=== PATIENT | male | born 1950 | race Caucasian/White ===

== ENCOUNTER 2017-01-06 09:00 | Inpatient (IN) ==
[2017-01-03 15:04] LABS: Basophils # (Auto) 0.1 K/mcL (0.0-0.3); Basophils % (Auto) 0.8 % (0.0-2.0); Eosinophils # (Auto) 0.2 K/mcL (0.0-0.7); Eosinophils % (Auto) 2.7 % (0.0-7.0); Granulocytes % (Auto) 63.5 % (38.0-78.0); Lymphocytes # (Auto) 1.7 K/mcL (1.5-4.8); Lymphocytes % (Auto) 25.3 % (15.5-49.0); Mean Cell Volume 84.5 fL (80.0-100.0); Mean Corpuscular HGB Conc 33.2 g/dL (31.0-36.0); Monocytes # (Auto) 0.5 K/mcL (0.1-0.9); Monocytes % (Auto) 7.7 % (1.0-12.0); Platelet Count 260 K/mcL (140-440); Red Cell Distribution Width 14.7 % (11.5-14.5)
[2017-01-03 15:32] LABS: Blood Urea Nitrogen 28 mg/dl (8-23)
[2017-01-03 16:17] LABS: Appearance,Urine CLOUDY; Bacteria,Urine 0 /hpf (0); Bilirubin,Urine NEG (NEG); Color,Urine YELLOW; Glucose,Urine (UA) NEGATIVE (NEG); Leukocyte Esterase,Urine 500 /uL (NEG); Mucus,Urine FEW /hpf (0); Nitrate,Urine NEG (NEG); Protein,Urine NEG (NEG); Specific Gravity,Urine 1.015 (1.000-1.035); Urine Blood 0.03 mg/dL (<0.03); Urine Budding Yeast FEW /hpf (0); Urine RBC 12 /hpf (0-1); Urine Squamous Epithelial Cell 2 /hpf (0-4); Urine WBC 48 /hpf (0-4); Urobilinogen,Urine NEG (NEG)
[~2017-01-06 09:00] MED LIST: ACETAMINOPHEN 500 MG TABLET PO SCH; CELECOXIB 200 MG CAPSULE PO SCH; PREGABALIN 75 MG CAPSULE PO SCH; ceFAZolin 1 GM VIAL IV SCH; oxyCODONE 10 MG TAB.ER.12H PO SCH
[2017-01-06 12:09] LABS: Appearance,Urine HAZY; Bacteria,Urine 0 /hpf (0); Bilirubin,Urine NEG (NEG); Color,Urine YELLOW; Glucose,Urine (UA) NEGATIVE (NEG); Leukocyte Esterase,Urine 500 /uL (NEG); Mucus,Urine FEW /hpf (0); Nitrate,Urine NEG (NEG); Protein,Urine 30 mg/dL (NEG); Specific Gravity,Urine 1.019 (1.000-1.035); Urine Blood NEG mg/dL (<0.03); Urine RBC 23 /hpf (0-1); Urine Squamous Epithelial Cell 7 /hpf (0-4); Urine WBC > 182 /hpf (0-4); Urobilinogen,Urine NEG (NEG)
[2017-01-06] MEDS ORDERED: SODIUM CHLORIDE 0.9% IV ONE (12:30)
[2017-01-06] MEDS ORDERED: GENTAMICIN SULFATE IV ONE (12:30)
[2017-01-06] MEDS ORDERED: WARFARIN 3 MG TABLET PO SCH (14:00)
[2017-01-06] MEDS ORDERED: WARFARIN 4 MG TABLET PO SCH ×2 (14:00)
[2017-01-06] MEDS ORDERED: fentaNYL 250 MCG/5 ML VIAL IV ONE (14:05)
[2017-01-06] MEDS ORDERED: KETAMINE 100 MG/ML ML IV ONE (14:05)
[2017-01-06] MEDS ORDERED: PHENYLEPHRINE 10 MG/ML VIAL IV ONE (14:05)
[2017-01-06] MEDS ORDERED: SUCCINYLCHOLINE 20 MG/ML ML IV ONE (14:05)
[2017-01-06] MEDS ORDERED: NALBUPHINE 10 MG/ML AMPUL IV ONE (14:05)
[2017-01-06] MEDS ORDERED: ONDANSETRON 4 MG/2 ML VIAL IV ONE (14:05)
[2017-01-06] MEDS ORDERED: PROPOFOL 200 MG/20 ML VIAL IV ONE (14:05)
[2017-01-06] MEDS ORDERED: ROCURONIUM 10 MG/ML ML IV ONE (14:05)
[2017-01-06] MEDS ORDERED: HYDROmorphone 2 MG/ML SYRINGE IV ONE (14:05)
[2017-01-06] MEDS ORDERED: LIDOCAINE HCL/PF 100 MG/5 ML SYRINGE IV ONE (14:05)
[2017-01-06] MEDS ORDERED: GLYCOPYRROLATE 0.2 MG/ML VIAL IV ONE (14:05)
[2017-01-06] MEDS ORDERED: ePHEDrine 50 MG/ML AMPUL IV ONE (14:05)
[2017-01-06] MEDS ORDERED: MIDAZOLAM 5 MG/5 ML VIAL IV ONE (14:05)
[2017-01-06] MEDS ORDERED: DEXAMETHASONE 10 MG/ML VIAL IV ONE (14:05)
[2017-01-06] MEDS ORDERED: GENTAMICIN SULFATE 800 MG/20 ML VIAL IR ONE (15:11)
[2017-01-06] MEDS ORDERED: BENZOCAINE/MENTHOL 1 LOZENGE PO PRN (15:18)
[2017-01-06] MEDS ORDERED: FLEETS ADULT ENEMA PR PRN (15:18)
[2017-01-06] MEDS ORDERED: MAGNESIUM HYDROXIDE 30 ML ORAL.SUSP PO PRN (15:18)
[2017-01-06] MEDS ORDERED: BISACODYL 10 MG SUPP.RECT PR PRN (15:18)
[2017-01-06] MEDS ORDERED: TRANEXAMIC ACID 1,000 MG/10 ML VIAL IV ONE (15:18)
[2017-01-06] MEDS ORDERED: ACETAMINOPHEN 325 MG TABLET PO PRN (15:18)
[2017-01-06] MEDS ORDERED: TEMAZEPAM 15 MG CAPSULE PO PRN (15:18)
[2017-01-06] MEDS ORDERED: ONDANSETRON 4 MG/2 ML VIAL IV PRN (15:18)
[2017-01-06] MEDS ORDERED: POLYETHYLENE GLYCOL 3350 17 GM PACKET PO PRN (15:18)
[2017-01-06] MEDS ORDERED: HYDROmorphone 2 MG/ML SYRINGE IV PRN (15:18)
[2017-01-06] MEDS ORDERED: IPRATROPIUM/ALBUTEROL SULFATE 1 PUFF INHALER INH PRN (15:20)
[2017-01-06] MEDS ORDERED: NITROGLYCERIN 0.4 MG TAB.SUBL SL PRN (15:20)
[2017-01-06] MEDS ORDERED: HYDROCORTISONE PR PRN (15:20)
--- NOTE | 2017-01-06 15:26 | Brief Operative Note ---
Date of procedure: 01/06/17 Pre-op diagnosis: Right shoulder djd and rca and bicep tendonopathy Post-op diagnosis: same Procedure: Right shoulder revers tsa and bicep tenodesis Grafts/Implants: Yes Anesthesia: GETA Complications: none Surgeon: Ángel Barbour Esthetician/Skin Therapist: Regino Heaton Estimated blood loss (cc): 20 Specimens Removed/Pathology: none sent Condition: stable Disposition: PACU
--- NOTE | 2017-01-06 15:54 | Operative Note ---
DATE OF OPERATION: 01/06/2017 PREOPERATIVE DIAGNOSIS: Right shoulder rotator cuff arthropathy with severe arthritis and biceps tendinopathy. POSTOPERATIVE DIAGNOSIS: Right shoulder rotator cuff arthropathy with severe arthritis and biceps tendinopathy. PROCEDURE: Right reverse total shoulder using Viburnum components, as well as biceps tenodesis. SURGEON: Ángel Barbour MD. PEWTER FABRICATOR: Regino Heaton PA-C. ANESTHESIA: General LMA anesthesia. COMPLICATIONS: None. DESCRIPTION OF PROCEDURE: The patient was brought to the operating room and put to sleep with general LMA anesthesia. Once asleep, the patient had the right shoulder sterilely prepped and draped in the usual sterile fashion. The shoulder was confirmed as the operative site with initials, timeout, and x-rays. Once confirmed, we proceeded with sterilely prepping the shoulder, placing Ioban over the skin and stockinette over the hand. The patient was sat in a very comfortable beach chair position in a Trendelenburg position to keep the knees about the height of his chest. Once done, we then made a deltopectoral approach to the shoulder and identified the cephalic vein. This was retracted. We had exposure of the joint and released the subscap musculature. Part of the supraspinatus was torn. We did release the remnants of the biceps tendon and then repaired this in the subpectoral region with two [id number] stitches and roughened the bone. Once the biceps was repaired we retracted the subscap medially and then dislocated the humeral head. The severe arthritis of the humeral head was identified. Retractors were placed, and we made our neck cut at 135 degrees with the guide at the surgical neck region. Once removed, we then preserved the posterior cuff that was intact, removed the bony fragment and placed a metal cap on the humerus. This was then subluxed posteriorly using a retractor. A 360 degree capsulotomy was performed palpating the axillary nerve to preserved it so it was not injured as it was identified throughout the case. We removed the remnants of the intra-articular portion of the biceps tendon. A central pin was placed into the glenoid and reamed up to the size 40. Once this was done, bony fragments inferiorly were removed. We then placed metaglene with a central screw measuring 40 mm and then three additional screws; one measuring 20, one measuring 24, and one measuring 32 with excellent purchase. A glenosphere was placed. This was 6 mm offset and 2 mm of eccentricity placed at the inferior anterior location. This was tapped into place and locked into place. We irrigated thoroughly and then prepared the humerus. This was broached up to the size of 13. A 13 stem was then implanted after trialing with a standard thickness 4 poly. This seemed to fit very nicely. We repaired the subscap with #2 Ethibond, irrigated thoroughly and closed the deltoid with #2 Vicryl. The skin was closed with 2-0 Vicryl and adhesive closure. The patient tolerated this well without complication. A DonJoy sling was fitted and given to the patient. RBH:trudy Job ID: [id number] Doc ID: [id number] Ángel Barbour MD
[2017-01-06] MEDS ORDERED: METHOCARBAMOL 1,000 MG/10 ML VIAL IV ONE (15:59)
[2017-01-06] MEDS: HYDROmorphone 2 MG/ML SYRINGE IV PRN ×2 (16:00→16:15)
--- NOTE | 2017-01-06 16:07 | XRay Report ---
HISTORY: Reason for Exam:Post-OP Total Shoulder FINDINGS: There is a well-positioned reverse total shoulder arthroplasty. No fracture is present and there are no abnormal soft tissue calcifications around the joint. There is mild arthritis at the acromioclavicular joint. IMPRESSION: Well-positioned right shoulder prosthesis Interpreted and Authenticated by: Joe Ambrocio 01/06/17
[2017-01-06] MEDS: KETOROLAC 15 MG/ML VIAL IV PRN (16:39)
[2017-01-06] MEDS: HYDROcodone/APAP 10/325MG TABLET PO PRN ×2 (17:24→21:11)
[2017-01-06] MEDS: INSULIN LISPRO 1 UNIT/0.01 ML UNIT SQ SCH (17:58)
[2017-01-06] MEDS: 0.45 % SODIUM CHLORIDE 1,000 ML IV SCH (18:15)
[2017-01-06] MEDS: SULFAMETHOXAZOLE/TRIMETHOPRIM 1 TABLET PO SCH (20:51)
[2017-01-06] MEDS: DOCUSATE SODIUM 100 MG CAPSULE PO SCH (20:51)
[2017-01-06] MEDS ORDERED: INSULIN GLARGINE, HUMAN 1 UNIT/0.01 ML SQ SCH (21:00)
[2017-01-06] MEDS ORDERED: ATORVASTATIN 20 MG TABLET PO SCH (21:00)
[2017-01-06] MEDS ORDERED: SENNOSIDES 1 TABLET PO SCH (21:00)
[2017-01-06] MEDS: ceFAZolin 1 GM VIAL IV SCH (21:11)
[2017-01-06] MEDS: 0.9 % SODIUM CHLORIDE 10 ML SYRINGE IV SCH (21:12)
[2017-01-07] MEDS: 0.45 % SODIUM CHLORIDE 1,000 ML IV SCH (01:40)
[2017-01-07] MEDS: HYDROcodone/APAP 10/325MG TABLET PO PRN ×4 (01:50→11:40)
[2017-01-07] MEDS: ceFAZolin 1 GM VIAL IV SCH (06:03)
[2017-01-07] MEDS: 0.9 % SODIUM CHLORIDE 10 ML SYRINGE IV SCH (06:04)
[2017-01-07] MEDS: INSULIN LISPRO 1 UNIT/0.01 ML UNIT SQ SCH ×2 (07:20→12:00)
[2017-01-07] MEDS ORDERED: PANTOPRAZOLE 40 MG TABLET PO SCH (07:30)
[2017-01-07] MEDS: DOCUSATE SODIUM 100 MG CAPSULE PO SCH (08:27)
[2017-01-07] MEDS: SULFAMETHOXAZOLE/TRIMETHOPRIM 1 TABLET PO SCH (08:28)
[2017-01-07] MEDS: KETOROLAC 15 MG/ML VIAL IV PRN (08:30)
[2017-01-07] MEDS ORDERED: OLMESARTAN MEDOXOMIL 20 MG TABLET PO SCH (09:00)
[2017-01-07] MEDS ORDERED: DULoxetine 30 MG CAPSULE PO SCH (09:00)
[2017-01-07] MEDS ORDERED: COBICISTAT PO SCH (09:00)
[2017-01-07] MEDS ORDERED: DARUNAVIR PO SCH (09:00)
[2017-01-07] MEDS ORDERED: FAMOTIDINE 20 MG TABLET PO SCH (09:00)
--- NOTE | 2017-01-07 10:21 | Orthopedic Progress Note ---
Subjective Patient information: Note initiated : 01/07/17 at 10:20 am Service Date, if different from initiated Date: [] Patient: Dereck Pitt 66 y/o M admitted on 01/06/17 for Right Reverse Total Shoulder Arthroplasty w/ Bicep. Chief Complaint:doing well with no pain an no cp] Objective Vital signs: Vital Signs Temp Pulse Resp BP BP BP Pulse Ox 01/07/17 08:45 77 91 01/07/17 07:09 97.8 F 18 148/69 96 01/07/17 02:50 97.9 F 76 16 151/77 96 01/06/17 23:24 97.6 F 74 18 131/74 95 01/06/17 19:30 97.9 F 93 H 18 109/70 96 01/06/17 18:13 98.3 F 86 18 110/60 96 01/06/17 17:05 129/73 96 01/06/17 16:50 120/60 96 01/06/17 16:35 104/55 96 01/06/17 16:21 97.5 F 70 18 136/57 94 01/06/17 16:20 97.1 F 68 16 137/60 68 L 01/06/17 16:05 66 16 151/54 93 01/06/17 15:50 64 16 148/54 95 01/06/17 15:45 62 16 144/72 95 01/06/17 15:40 60 16 157/52 100 01/06/17 15:35 97.0 F 61 10 L 157/40 100 01/06/17 15:30 94 01/06/17 15:15 98.4 F 16 148/78 94 01/06/17 10:47 95.3 F L 18 156/73 100 Intake and Output 01/06/17 01/07/17 01/07/17 21:59 05:59 13:59 Intake Total 2340 / 2340 2040 / 2040 1390 / 1390 Output Total 350 / 350 350 / 350 Balance 1989 / 1989 1690 / 1690 1390 / 1390 Intake: IV 1300 / 1300 1000 / 1000 Sodium Chloride 0.45% 1, 1000 / 1000 000 ml @ 100 mls/hr IV . Q10H [facility] Rx#:[id number] Oral 1040 / 1040 1040 / 1040 1390 / 1390 Output: Void Amount 200 / 200 350 / 350 Estimated Blood Loss 150 / 150 Other: Meal Dinner Breakfast Percent of Meal Consumed 100% 100% Weight 249 lb Intake & Output: Intake & Output 01/06/17 01/07/17 01/07/17 21:59 05:59 13:59 Intake Total 2340 / 2340 2040 / 2040 1390 / 1390 Output Total 350 / 350 350 / 350 Balance 1989 / 1989 1690 / 1690 1390 / 1390 Weight 249 lb Intake: IV 1300 / 1300 1000 / 1000 Sodium Chloride 0.45% 1, 1000 / 1000 000 ml @ 100 mls/hr IV . Q10H [facility] Rx#:[id number] Oral 1040 / 1040 1040 / 1040 1390 / 1390 Output: Void Amount 200 / 200 350 / 350 Estimated Blood Loss 150 / 150 Other: Meal Dinner Breakfast Percent of Meal Consumed 100% 100% Incision: Yes healing Incision clean and dry: Yes Dressing: Yes clean Weight bearing status: partial Neurological exam IM: Yes oriented X3, Yes neurovascular intact Extremities exam IM: Yes Foot pink and warm, Yes neurovascular intact - Labs CBC & BMP: 01/03/17 14:05 01/03/17 14:04 Labs: Orthopedic Labs 01/07/17 01/06/17 01/03/17 03:53 13:54 14:04 POC PT 13.3 PT 15.0 H 19.3 H POC INR 1.1 INR 1.2 H 1.6 H 01/03/17 14:05 Hgb 13.7 Hct 41.4
--- NOTE | 2017-01-07 10:25 | Discharge Summary ---
Ortho Discharge - TSA - Patient Instructions Diet: Regular Diet Activity: activity as tolerated, weight bearing as tolerated Total Shoulder Protocol: Leave immobilizer in place except for bathing and ROM. Abduction pillow. Continue to wear sling until seen by physician. Codman Pendulum : These exercises use momentum produced by your body to move your shoulder joint. Bend your knees and shift your weight to your front leg, then back, allowing your arm to swing in the same directions. Using the same technique, alternately shift your weight between your right and left legs, allowing your arm to swing from side to side. These exercises are also performed in counterclockwise and clockwise circular motions. Typically these exercises are performed several times per day, for a set number repetitions or minutes, such as 20 times in a row or 5 minutes at a time. Dressing Care: Aquacel Ag - leave on for 5 days Patient Education: Shoulder Arthroplasty (DC) Additional Instructions: Discharge Instructions: Do the exercises at home that physical therapy gave you. You are scheduled with [facility] on January 12 @ 11:00am. Take your prescription, photo ID, insurance cards, and current medication list with you to your first physical therapy appointment.Your orders will be faxed to them. Take your prescription to picking supervisor any medication or equipment (such as walker, crutches, toilet riser or C.P.M.) Wear comfortable clothing for your physical therapy. Weight bearing as tolerated. If you have the Aquacel Ag dressing, leave in place for 7 days then remove. If dressing becomes soiled (turns black), remove and use gauze 4x4 dressing and silvasorb ointment and change daily. Keep incision clean and dry. If you have Dermabond (a dressing with a mesh-like appearance), leave open to air. You may start showering on post op day #2. The Dermabond dressing can get wet, do not scrub dressing. Pat dry. To avoid constipation while taking any narcotic pain medication, take an over the counter stool softener/laxative. Use your Cryocuff or ice packs as directed, on for 20 minutes at a time throughout the day. This and elevation will help with pain and swelling. Call your physician for fevers above 100.5 or pain not controlled by medication. Your prescriptions are with your discharge information. Some medications were electronically transmitted to your pharmacy of choice.[facility] @ - Follow Up Plan Follow Up Appointments: Ángel Barbour MD [Physician] - 01/19/17 3:40 pm Disposition: Home, Self-Care Prognosis: Good Rehab Potential: Good I certify that the patient requires SNF services: No Overall status at discharge: patient is progressing back to baseline - Orders For Discharge Additional Discharge Orders: Physical Therapy at Discharge - TSA Location: Determined By Patient Brace/Splint Location: Determined By Patient
[2017-01-07] MEDS ORDERED: WARFARIN 7.5 MG TABLET PO SCH (14:00)
== END 2017-01-07 12:10 | disposition home or self-care (01) | DRG 483 ==
LOC: MEDSUR 10:31
PROVIDERS: ADMIT Orthopaedic Surgery; ATTEND Orthopaedic Surgery